=== PATIENT | female | born 1960 | race Caucasian/White ===

== ENCOUNTER 2017-08-21 13:40 | Emergency (ER) | payer BC ==
[2017-08-21 13:49] VITALS: BP 148/91
[2017-08-21] MEDS ORDERED: Lidocaine/Epineph/Tetraca SOL* (LET solution) 4 ML BTL TOPICAL ONE (14:44)
[2017-08-21] MEDS ORDERED: Ibuprofen TAB* 800 MG PO ONE (15:52)
--- NOTE | 2017-08-21 18:22 | ED ---
Skin Complaint - History of Current Complaint Chief Complaint: EDFacialInjury Time Seen by Provider: 08/21/17 14:44 Stated Complaint: FACIAL LAC Pain Intensity: 6 - Allergy/Home Medications Allergies/Adverse Reactions: Allergies Allergy/AdvReac Type Severity Reaction Status Date / Time No Known Allergies Allergy Verified 08/21/17 13:49 PMH/Surg Hx/FS Hx/Imm Hx - Cancer History Hx Chemotherapy: No Hx Radiation Therapy: No Infectious Disease History: No Infectious Disease History: Denies: Traveled Outside the [place] in Last 30 Days - Social History Alcohol Use: None Substance Use Type: Reports: None Smoking Status (MU): Never Smoked Tobacco Physical Exam Vital Signs On Initial Exam: Initial Vitals Temp Pulse Resp BP Pulse Ox 97.6 F 65 15 148/91 98 08/21/17 13:45 08/21/17 13:45 08/21/17 13:45 08/21/17 13:45 08/21/17 13:45 - Ashley Coma Scale Coma Scale Total: 15 Procedures - Laceration/Wound Repair 1 Location: face - Lt cheek Description: Linear Anesthesia: Local, Lido Length, Depth and Shape: 3cm x 2mm Betadine Prep?: Yes Laceration/Wound Explored: clean Closure: Single Layer Suture Type: Prolene - 6-0 Number of Sutures: 8 Layer Closure?: No Sterile Dressing Applied?: Yes Diagnostics - Vital Signs Vital Signs Temp Pulse Resp BP Pulse Ox 08/21/17 13:45 97.6 F 65 15 148/91 98 - Laboratory Lab Statement: Any lab studies that have been ordered have been reviewed, and results considered in the medical decision making process. Course/Dx - Diagnoses Provider Diagnoses: Facial laceration Discharge - Discharge Plan Condition: Stable Disposition: HOME Patient Education Materials: Care For Your Stitches (ED), Facial Laceration (ED ) Referrals: Mary Welch NP [Primary Care Provider] - Additional Instructions: Gently wash wound daily with soap and water - rinse well and pat dry the reapply triple antibiotic ointment Follow-up with PCP in 5 days for wound check and suture removal *If you develop redness, swelling, purulent drainage, fever, chills, seek medical attention sooner
== END 2017-08-21 18:30 | disposition home or self-care (01) ==
LOC: ED 13:40
DX: S01.412A Laceration without foreign body of left cheek and temporomandibular area, initial encounter (principal); X58.XXXA Exposure to other specified factors, initial encounter; Y92.9 Unspecified place or not applicable
CPT/HCPCS: 12011; 99281; A9270-GY

== ENCOUNTER 2019-09-05 11:54 | Observation (INO) | payer BC ==
--- NOTE | 2019-09-05 12:12 | ED ---
Palpitations / Dysrhythmia - HPI Summary HPI Summary: This patient is a 58 year old F with a history of rheumatoid arthritis presenting to ED with a chief complaint of cough since 08/31/19 and palpitations since today. Patient was fatigued on 09/01/19 and has been taking Nyquil every day. Patient went to her PCP this morning and was noted to have sinus tachycardia on EKG. Her PCP sent her here for PNA work-up. Patient reports feeling palpitations like her heart is racing. She reports coughing green phelgm and congestion with mild nausea. Patient denies fevers, chills, earache, urinary symptoms. Patient got her flu shot this year. She received a shot of Enbrel on 09/03/19. The patient rates the pain 0/10 in severity. Symptoms aggravated by nothing. Symptoms alleviated by nothing. HR in ED room noted to be 160. - History of Current Complaint Chief Complaint: EDDysrhythmPalp Time Seen by Provider: 09/05/19 12:05 Hx Obtained From: Patient Onset/Duration: Gradual Onset, Lasting Days - Since 08/31/19, Still Present, Worse Since Timing: Constant Severity Initially: Mild Severity Currently: Mild Character: Fast Aggravating: Nothing Alleviating: Nothing Associated Signs & Symptoms: Negative - Fevers, chills, Nausea - Allergy/Home Medications Allergies/Adverse Reactions: Allergies Allergy/AdvReac Type Severity Reaction Status Date / Time No Known Allergies Allergy Verified 09/05/19 11:56 Home Medications: Home Medications Calcium Carbonate [Calcium] 500 mg PO DAILY 09/05/19 [History Confirmed 09/05/19 ] Etanercept SYR (NF) [Enbrel (NF)] 50 mg SUBCUT Q7D 09/05/19 [History Confirmed 09/05/19] Folic Acid TAB* [Folvite TAB*] 1 mg PO DAILY 09/05/19 [History Confirmed ] Meloxicam(NF) [Mobic(NF)] 15 mg PO DAILY 09/05/19 [History Confirmed 09/05/19] Methotrexate TAB* 2.5 mg PO WEEKLY 09/05/19 [History Confirmed 09/05/19] Multivitamins/Minerals TAB* [Theragran/minerals TAB*] 1 tab PO DAILY 09/05/19 [ History Confirmed 09/05/19] PMH/Surg Hx/FS Hx/Imm Hx Endocrine/Hematology History: Denies: Hx Anticoagulant Therapy, Hx Blood Disorders Cardiovascular History: Denies: Hx Myocardial Infarction Respiratory History: Denies: Hx Pulmonary Embolism Musculoskeletal History: Reports: Hx Arthritis, Hx Rheumatoid Arthritis Sensory History: Denies: Hx Legally Blind, Hx Deafness Opthamlomology History: Denies: Hx Legally Blind EENT History: Denies: Hx Deafness - Cancer History Hx Chemotherapy: No Hx Radiation Therapy: No Infectious Disease History: No Infectious Disease History: Denies: Traveled Outside the [place] in Last 30 Days - Family History Known Family History: Positive: None - Social History Alcohol Use: Occasionally Hx Substance Use: No Substance Use Type: Reports: None Hx Tobacco Use: No Smoking Status (MU): Never Smoked Tobacco Review of Systems Negative: Fever, Chills ENT: Other - Congestion Negative: Ear Ache Positive: Palpitations Positive: Cough Positive: Nausea Genitourinary: Negative - Urinary symptoms All Other Systems Reviewed And Are Negative: Yes Physical Exam - Summary Physical Exam Summary: Constitutional: Well-developed, Well-nourished, Alert. (-) Distressed Skin: Mild turgor HENT: Dry mucous membranes Eyes: Conjunctiva normal Neck: Musculoskeletal ROM normal neck. (-) JVD, (-) Stridor, (-) Tracheal deviation Cardio: Tachycardic; Intact distal pulses; The pedal pulses are 2+ and symmetric. Radial pulses are 2+ and symmetric. Pulmonary/Chest wall: Lower lungs have very faint rhonchi bilaterally. Abd: Soft, (-) tenderness, (-) Distension, (-) Guarding, (-) Rebound Musculoskeletal: (-) Edema Neuro: Alert, Oriented x3 Psych: Mood and affect Normal Triage Information Reviewed: Yes Vital Signs On Initial Exam: Initial Vitals Temp Pulse Resp BP Pulse Ox 97.8 F 160 20 86/62 97 09/05/19 11:56 09/05/19 11:56 09/05/19 11:56 09/05/19 11:56 09/05/19 11:56 Vital Signs Reviewed: Yes Procedures - Sedation Patient Received Moderate/Deep Sedation with Procedure: No Diagnostics - Vital Signs Vital Signs Temp Pulse Resp BP Pulse Ox 09/05/19 11:56 97.8 F 160 20 86/62 97 - Laboratory Result Diagrams: 09/05/19 12:36 09/05/19 12:36 Lab Statement: Any lab studies that have been ordered have been reviewed, and results considered in the medical decision making process. - Radiology CXR Radiology Interpretation Completed By: Radiologist Summary of Radiographic Findings: CXR PATCHY RIGHT MIDLUNG CONSOLIDATION. RECOMMEND FOLLOW-UP UNTIL RESOLUTION TO EXCLUDE UNDERLYING PULMONARY PARENCHYMAL PATHOLOGY. Dr. Rivera has reviewed this radiology report. - CT Chest/thorax CTA CT Interpretation Completed By: Radiologist Summary of CT Findings: 1. NO PULMONARY ARTERIAL FILLING DEFECT TO SUGGEST PULMONARY EMBOLISM. 2. ECTASIA OF THE ASCENDING THORACIC AORTA AT 3.9 CM. 3. MULTIFOCAL AIRSPACE DISEASE AND CENTRILOBULAR NODULARITY SUGGESTIVE OF DIFFUSE INFECTIOUS/INFLAMMATORY PROCESS. Dr. Rivera has reviewed this radiology report. - EKG 1225 Cardiac Rate: Tachycardia - 150 BPM Summary of EKG Findings: An EKG at 1225 revealed junctional tachycardia at 150 BPM. Cannot see P-waves, s1q3t3 suggesting right heart strain, lateral ST- depressions without ST elevations, aVF T-wave non-specific abnormalities, no STEMI, no prior. Dr. Rivera has reviewed and interpreted this EKG. 1318 Cardiac Rate: NL - 97 BPM EKG Rhythm: Sinus Rhythm EKG Comparison: Other - Normalized Summary of EKG Findings: An EKG at 1318 revealed NSR at 97BPM replaced previous junctional tachycardia, lead III very low voltage cannot clearly interpret, lateral ST depressions resolved, aVF normalized compared to prior. Dr. Rivera has reviewed and interpreted this EKG. Re-Evaluation - Re-Evaluation First Eval Re-Evaluation Time: 13:14 Change: Improved Comment: Patient HR decreased to 96 with fluids. Will get repeat EKG. Patient does not usually take baby aspirin. Second Eval Re-Evaluation Time: 15:00 Comment: Discussed results with patient. Patient [place] be [place] [facility] Patient understands and agrees with this plan. Course/Dx - Course Course Of Treatment: This patient is a 58 year old F with a history of rheumatoid arthritis presenting to ED with a chief complaint of cough since and palpitations since today. In the ED course, patient received lactated ringers. An EKG at 1225 revealed junctional tachycardia at 150 BPM. Cannot see P -waves, s1q3t3 suggesting right heart strain, lateral ST-depressions without ST elevations, aVF T-wave non-specific abnormalities, no STEMI, no prior. In the ED course, with fluids, the patient's HR reduced to 96. A repeat EKG at 1318 revealed NSR at 97BPM replaced previous junctional tachycardia, lead III very low voltage cannot clearly interpret, lateral ST depressions resolved, aVF normalized compared to prior. UA revealed 1+ ketones, 2+ blood, 3+ leukocyte esterase, WBC 2+, RBC 2+, squamous epithelial cells present. CXR revealed CXR PATCHY RIGHT MIDLUNG CONSOLIDATION. RECOMMEND FOLLOW-UP UNTIL RESOLUTION TO EXCLUDE UNDERLYING PULMONARY PARENCHYMAL PATHOLOGY. Blood work revealed WBC 11.2 , RBC 3.66, Hgb 11.1, Hct 33, MPV 7.3, neutrophils 8.7, lymphocytes 0.7, monocytes 1.8, sodium 130, chloride 98, glucose 111, troponin 0.14, BNP 457, lipase <10. Influenza A and B both negative. Chest/thorax CTA revealed: 1. NO PULMONARY ARTERIAL FILLING DEFECT TO SUGGEST PULMONARY EMBOLISM. 2. ECTASIA OF THE ASCENDING THORACIC AORTA AT 3.9 CM. 3. MULTIFOCAL AIRSPACE DISEASE AND CENTRILOBULAR NODULARITY SUGGESTIVE OF DIFFUSE INFECTIOUS/INFLAMMATORY PROCESS. Thus, I gave patient Aspirin 162mg, Zithromax, and Rocephin. I will treat the patient as bacterial bronchitis, but given that the patient had positive troponin and junctional tachycardia, I believe the patient needs to be hospitalized on tele-monitor. Discussed patient case with Dr. Scott, hospitalist, who accepted the patient for admission [place] [facility] Patient will be admitted to [facility] with dx of bacterial bronchitis, tachyarrhythmia, dynamic EKG changes, and elevated troponin with likely demand ischemia. Patient understands and agrees with this plan. - Diagnoses Provider Diagnoses: Acute bacterial bronchitis, Tachyarrhythmia, EKG abnormalities, Elevated troponin, Demand ischemia - Physician Notifications Discussed Care Of Patient With: Jennifer Scott Time Discussed With Above Provider: 15:03 Instructed by Provider To: Admit As Inpatient - Discussed patient case with Dr. Scott, hospitalist, who accepted the patient for admission to [facility] Discharge ED - Sign-Out/Discharge Documenting (check all that apply): Patient Departure - Admit - Discharge Plan Condition: Fair Disposition: ADMITTED TO [facility] - Billing Disposition and Condition Condition: FAIR Disposition: Admitted to [facility] - Attestation Statements Document Initiated by Pita: Yes Documenting Scribe: Unruly Arvizu Provider For Whom Pita is Documenting (Include Credential): Anthony Rivera MD Scribe Attestation: I, Unruly Arvizu, scribed for Anthony Rivera MD on 09/05/19 at 1906. Scribe Documentation Reviewed: Yes Provider Attestation: The documentation as recorded by the Unruly chin accurately reflects the service I personally performed and the decisions made by me, Anthony Rivera MD Status of Scribe Document: Viewed
[2019-09-05] MEDS ORDERED: Lactated Ringers 1000 ML Bag* 1,000 ML IV ONE ×2 (12:20→12:21)
[2019-09-05 12:48] LABS: Hematocrit 33 % (35-47); Hemoglobin 11.1 g/dL (12.0-16.0); Mean Corpuscular HGB Conc 34 g/dL (31-36); Mean Corpuscular Hemoglobin 30 pg (27-31); Mean Corpuscular Volume 90 fL (80-97); Mean Platelet Volume 7.3 fL (7.4-10.4); Platelet Count 196 10^3/uL (150-450); Red Blood Count 3.66 10^6 /uL (3.70-4.87); Red Cell Distribution Width 13 % (10-15); White Blood Count 11.2 10^3/uL (3.5-10.8)
[2019-09-05 13:04] LABS: Urine Appearance Cloudy; Urine Bilirubin Negative (Negative); Urine Blood 2+ (Negative); Urine Color Yellow; Urine Glucose Negative (Negative); Urine Ketones 1+ (Negative); Urine Nitrite Negative (Negative); Urine Protein Negative (Negative); Urine Specific Gravity 1.011 (1.010-1.030); Urine Urobilinogen Negative (Negative)
[2019-09-05 13:06] LABS: ALT 14 U/L (7-52); AST 14 U/L (13-39); Albumin 3.6 g/dL (3.2-5.2); Alkaline Phosphatase 87 U/L (34-104); Anion Gap 10 mmol/L (2-11); BUN/Creatinine Ratio 14.6 (8-20); Blood Urea Nitrogen 13 mg/dL (6-24); CO2 Carbon Dioxide 22 mmol/L (22-32); Chloride 98 mmol/L (101-111); EGFR African American 78.8 (>60); EGFR Non-African American 65.1 (>60); Globulin 3.5 g/dL (2-4); Glucose 111 mg/dL (70-100); Indirect Bilirubin 0.3 mg/dL (0.3-1.0); Magnesium 1.9 mg/dL (1.9-2.7); Sodium 130 mmol/L (135-145); Total Protein 7.1 g/dL (6.4-8.9)
[2019-09-05 13:12] LABS: Troponin I 0.14 ng/mL (<0.03)
[2019-09-05] MEDS ORDERED: Iohexol 350* (CONTRAST) 500 ML MDV IV ONE (13:14)
[2019-09-05 13:16] LABS: Urine Bacteria Absent (Absent); Urine Red Blood Cell 2+(6-10/hpf) (Absent); Urine Squamous Epithelial Cell Present (Absent); Urine White Blood Cell 2+(11-20/hpf) (Absent)
[2019-09-05 13:40] LABS: TSH (Thyroid Stimulating Horm) 2.34 mcIU/mL (0.34-5.60)
[2019-09-05 13:42] LABS: Free T4 1.05 ng/dL (0.61-1.12)
[2019-09-05 13:49] LABS: ABS Lymphocytes 0.7 10^3/ul (1.0-4.8); ABS Monocytes 1.8 10^3/ul (0-0.8); ABS Neutrophils 8.7 10^3/ul (1.5-7.7); Eosinophil % 0.1 %; Lymphocyte % 5.9 %
[2019-09-05 13:51] LABS: Influenza A Molecular NEGATIVE (Negative); Influenza B Molecular NEGATIVE (Negative)
[2019-09-05] MEDS ORDERED: cefTRIAXone(*) 1 GM in NS 0.9% 50 ML* 50 ML IVPB ONE (14:43)
[2019-09-05] MEDS ORDERED: Azithromycin 500 mg/250 ml NS 500 MG/250 ML BAG IVPB ONE (14:44)
[2019-09-05] MEDS ORDERED: Aspirin 81 mg CHEW TAB* 81 MG TAB.CHEW PO ONE (14:44)
[2019-09-05] MEDS ORDERED: Ondansetron INJ* 2 MG/ML VIAL IV PRN (16:36)
[2019-09-05] MEDS ORDERED: Al Hydrox/Mg Hydrox/Simet LIQ* 30 ML UDC PO PRN (16:36)
[2019-09-05] MEDS ORDERED: Senna TAB 8.6 mg* TAB PO PRN (16:36)
[2019-09-05 17:31] LABS: Troponin I 0.18 ng/mL (<0.03)
[2019-09-05] MEDS: NS 0.9% 1000 ML** 1,000 ML IV SCH (20:01)
[2019-09-05] MEDS: Acetaminophen TAB* 325 MG PO PRN (20:05)
--- NOTE | 2019-09-05 20:06 | HP ---
CC: Dr. Pulliam * ADMISSION HISTORY AND PHYSICAL: DATE OF ADMISSION: 09/05/19 PROVIDER: ALONSO Nash. PRIMARY CARE PROVIDER: Dr. Pulliam. ATTENDING PHYSICIAN WHILE IN THE HOSPITAL: Dr. Jennifer Scott * (dictated by ALONSO Nash). CHIEF COMPLAINT: Malaise, productive cough, and tachycardia. HISTORY OF PRESENT ILLNESS: Brynn Gomes is a 58-year-old white female with a past medical history significant for rheumatoid arthritis and osteoarthritis who presented to the emergency department upon the direction of her primary care provider due to tachycardia. The patient has been experiencing feeling of general malaise, productive cough, and nasal congestion for 4 days. Yesterday evening, she started to feel her heart racing, which prompted her to go to her primary care provider today. Her primary care provider noted tachycardia and directed her to go to the emergency department. She additionally notes that she has had poor appetite during this period of time, but endorses that she has been drinking a significant amount of water at least 8 cups of water per day. She denies difficulty breathing, chest pain, dizziness, lightheadedness, symptomatic fever or chills, nausea, vomiting, or diarrhea. She did note that she did have some abdominal discomfort 5 days ago; however, this resolved. EMERGENCY DEPARTMENT COURSE: When the patient arrived to the emergency department, her vitals were 97.8 degrees Fahrenheit, pulse of 160 beats per minute, respiratory rate of 20, oxygen saturation 97% on room air, and blood pressure 86/62. She was given 2 L of a fluid bolus and her heart rate then improved to 94 with blood pressure of 109/73 and no longer feeling symptomatic of tachycardia. The hospitalists were then asked to evaluate the patient for admission. PAST MEDICAL HISTORY: 1. Rheumatoid arthritis. 2. Osteoarthritis. PAST SURGICAL HISTORY: Tubal ligation. HOME MEDICATIONS: 1. Multivitamin 1 tab p.o. daily. 2. Calcium 500 mg p.o. daily. 3. Methotrexate 2.5 mg p.o. weekly. 4. Mobic 15 mg p.o. daily. 5. Folic acid 1 mg p.o. daily. 6. Enbrel 50 mg subcu q.7 days (last dose was on 09/03/19). ALLERGIES: No known drug allergies. FAMILY HISTORY: Father due to esophageal cancer. Mother in her 90s due to lymphoma. The patient denies family history of coronary artery disease or CVA. SOCIAL HISTORY: The patient lives with her . They have 2 children. The patient denies tobacco or use of illicit drug use. She drinks approximately 5 alcoholic beverages per week. 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 The patient's surrogate medical decision maker should she need one is her , Rashaad Gomes. His phone number is [phone]. REVIEW OF SYSTEMS: An 11-point review of systems was completed and all pertinent positives and negatives are as noted above in the HPI. All other systems are negative. PHYSICAL EXAMINATION GENERAL: A well-developed, well-nourished white female who appears younger than stated age, lying upright in hospital bed, appearing comfortable, in no acute distress. HEENT: Eyes: PERRL. Sclerae anicteric. ENT: Mucous membranes appear moist. NECK: Supple. LUNGS: Rhonchi in the bilateral lung bases. No crackles appreciated or wheezing. CARDIO: Regular rate and rhythm without murmurs, rubs, or gallops. ABDOMEN: Normoactive bowel sounds x4 quadrants. The abdomen is soft, nontender , and nondistended. EXTREMITIES: No clubbing, cyanosis, or edema. NEUROLOGIC: The patient is alert and oriented x3. No focal deficits. Able to move all extremities. SKIN: Skin is warm, dry, and intact. DIAGNOSTIC STUDIES/LAB DATA: Chest x-ray: Patchy right midlung consolidation. CTA of the chest: No pulmonary arterial filling defect to suggest pulmonary embolism. Ectasia of the ascending thoracic aorta at 3.9 cm. Multifocal airspace disease and centrilobular nodularities with suggestion of diffuse infectious/inflammatory process. EKG at 1225 demonstrates junctional tachycardia at rate of 100 beats per minute. There are some ST depressions in V4 and V5. EKG at 1315 demonstrates normal sinus rhythm, 95 beats per minute. No ST depressions or elevations. No T-wave inversion. Low voltage isolated in lead III. White blood cell count 11.2, hemoglobin 11.1, hematocrit 33, platelet count 196. Sodium 130, potassium 4.0, chloride 98, carbon dioxide 22, anion gap 10, BUN 13, creatinine 0.89, glucose 111, calcium 9, magnesium 1.9. LFTs are unremarkable. Troponin 0.14, BNP 457. TSH 2.34, free T4 of 1.05. Influenza A negative, influenza B negative. Urinalysis with +3 esterase, present squamous epithelial cells, +2 wbc's, +2 rbc's, +2 blood, +1 ketones. ASSESSMENT AND PLAN: Brynn Gomes is a 58-year-old white female with a past medical history significant for rheumatoid arthritis who presents to the emergency department for tachycardia, malaise, and cough. The patient will be admitted to observation for: 1. Sepsis secondary to pneumonia. The patient meets sepsis criteria due to her tachycardia and tachypnea. She does have leukocytosis. She is afebrile. Her chest x-ray does confirm consolidation and she does have clinical findings of pneumonia. Her tachycardia greatly improved with 2 L fluid bolus of lactated Ringer's, which is appropriate for her weight. Unfortunately, her blood cultures were not drawn prior to this; however, we will draw them now, though they will likely be of low utility given that they were taken after IV antibiotics were administered by the ED provider of ceftriaxone and azithromycin. She is minimally hypotensive and I will continue 100 cc per hour of normal saline. I will continue ceftriaxone and azithromycin. I have ordered Legionella and Streptococcus pneumoniae urine antigen as well as sputum culture. 2. Tachycardia. The patient's tachycardia is likely secondary to sepsis, as previously mentioned, and has resolved with fluids, though she is still minimally tachycardic. We will continue to closely monitor this and we will order the patient telemetry. Pulmonary embolism has been effectively ruled out with CTA of the chest. 3. Elevated troponin. The patient does have a mildly elevated troponin, which I suspect is due to the troponin being drawn during a tachycardic event and is likely ischemic demand. Additionally, ischemic demand would also be related to her acute illness, but I will repeat a troponin as well as an additional EKG and continue to monitor this. She has been given aspirin in the emergency department, though I have low suspicion for acute coronary syndrome. The patient will be on telemetry, as previously mentioned. 4. Rheumatoid arthritis. The patient received Enbrel recently. I am going to hold her methotrexate while she is in the hospital. 5. FEN. Continue 100 cc of normal saline. The patient is minimally hyponatremic to 130, though not symptomatic of this and hopefully, this will improve with normal saline. We will continue to monitor. The patient may have a regular unrestricted diet. 6. Aorta ectasia. This is an incidental finding of the patient's CT angiogram and the patient is not symptomatic of an aortic aneurysm. This should be followed up outpatient with her primary care provider. 7. Code status. The patient is full code. 8. DVT prophylaxis. The patient has a DVT risk score of 2. I have started her on Lovenox. TIME SPENT: Approximately 50 minutes were spent on this admission, approximately half this time was spent at the bedside evaluating the patient and discussing the plan of care. This case has been reviewed by my attending, Dr. Jennifer Scott, and she agrees with this plan of care. ALONSO NASH [id number]/[facility] #: [id number] JOCELYNN
[2019-09-05 20:29] LABS: Troponin I 0.15 ng/mL (<0.03)
[2019-09-05] MEDS ORDERED: Melatonin 3 MG TAB PO PRN (20:30)
[2019-09-05] MEDS ORDERED: Benzonatate CAP* 100 MG PO PRN (20:30)
[2019-09-05] MEDS ORDERED: Enoxaparin(*) 40 MG/0.4 ML SYR SUBCUT SCH (21:00)
[2019-09-06 05:46] LABS: ABS Eosinophils 0.1 10^3/ul (0-0.6); ABS Lymphocytes 1.1 10^3/ul (1.0-4.8); ABS Monocytes 1.5 10^3/ul (0-0.8); ABS Neutrophils 5.3 10^3/ul (1.5-7.7); Eosinophil % 1.5 %; Hematocrit 28 % (35-47); Hemoglobin 9.6 g/dL (12.0-16.0); Lymphocyte % 14.2 %; Mean Corpuscular HGB Conc 35 g/dL (31-36); Mean Corpuscular Hemoglobin 31 pg (27-31); Mean Corpuscular Volume 89 fL (80-97); Mean Platelet Volume 7.5 fL (7.4-10.4); Platelet Count 189 10^3/uL (150-450); Red Blood Count 3.14 10^6 /uL (3.70-4.87); Red Cell Distribution Width 13 % (10-15); White Blood Count 8.1 10^3/uL (3.5-10.8)
[2019-09-06 06:03] LABS: BUN/Creatinine Ratio 13.2 (8-20); Calcium 8.2 mg/dL (8.6-10.3); EGFR African American 107.5 (>60); EGFR Non-African American 88.9 (>60); Potassium 3.7 mmol/L (3.5-5.0)
[2019-09-06] MEDS: NS 0.9% 1000 ML** 1,000 ML IV SCH (06:36)
[2019-09-06] MEDS: Acetaminophen TAB* 325 MG PO PRN (06:39)
[2019-09-06] MEDS ORDERED: cefTRIAXone(*) 1 GM in NS 0.9% 50 ML* 50 ML IVPB SCH (08:00)
[2019-09-06 08:05] VITALS: BP 119/67
[2019-09-06] MEDS ORDERED: Azithromycin TAB* 250 MG PO SCH (09:00)
--- NOTE | 2019-09-06 22:51 | DS ---
CC: Dr. Pulliam * DISCHARGE SUMMARY: DATE OF ADMISSION: 09/05/19 DATE OF DISCHARGE: 09/06/19 ATTENDING PHYSICIAN WHILE IN THE HOSPITAL: Layne Rasheed MD * (dictated by ALONSO Nash). PRIMARY CARE PROVIDER: Dr. Pulliam. PRINCIPAL DIAGNOSES: 1. Sepsis secondary to pneumonia, signs of sepsis resolved. 2. Junctional tachycardia, resolved. 3. Elevated troponin related to ischemic demand. SECONDARY DIAGNOSES: 1. Rheumatoid arthritis. 2. Osteoarthritis. STUDIES DONE WHILE IN THE HOSPITAL: Chest CTA, no pulmonary arterial filling defect to suggest pulmonary embolism. Ectasia of the ascending thoracic aorta at 3.9 cm. Multifocal airspace disease and centrilobular nodularity suggested of diffuse infectious/inflammatory process. Chest x-ray: Impression: Patchy right midlung consolidation. PERTINENT LABORATORY DATA: White blood cell count 11.2, downtrended to 8.1. Troponin initially 0.14, then 0.18, and 0.15. Urine culture no growth. Legionella antigen negative. Streptococcus pneumonia antigen negative. HISTORY OF PRESENT ILLNESS/HOSPITAL COURSE: Brynn Gomes is a 58-year-old white female with past medical history significant for rheumatoid arthritis and osteoarthritis, who presented to the emergency department on 09/05/19 due to malaise, productive cough, and tachycardia. Please see admitting history and physical written by myself for further details. In brief, the patient had a sensation of tachycardia and went to her primary care provider, who directed her to the emergency department. She was found to be tachycardic in the 160s, which resolved with 2 L fluid bolus while she was in the emergency department. This was felt to be related to her sepsis secondary to pneumonia. She did have an elevated troponin, which is likely ischemic demand in the setting of her episode of tachycardia as well as acute infection. She had no ischemic changes on her EKG and this has very low likelihood to represent ACS. The patient was treated with IV ceftriaxone and azithromycin empirically. She was feeling much improved on the day of discharge. She did receive Tessalon Perles for her cough , which she felt helped her symptomatically. She was afebrile during the entirety of her hospital stay. Her leukocytosis down trended and her tachycardia and tachypnea resolved. She was initially hypotensive and I continued fluids overnight into the morning and her hypotension resolved. She felt comfortable with discharge. She had no shortness of breath, no chest pain. No symptomatic fevers or chills. She was feeling improved. She did develop a productive cough, though as previously mentioned with symptomatic improvement with Tessalon Perles. The patient did have an episode of loose bowel movement after receiving antibiotics. PHYSICAL EXAMINATION ON THE DAY OF DISCHARGE: General: Middle-aged white female, well developed, well nourished; sitting upright on hospital bed, appearing comfortable, in no acute distress. Eyes: PERRLA. Sclerae anicteric. ENT: Mucous membranes are moist. Lungs: Clear to auscultation throughout. Cardio: Regular rate and rhythm without murmurs, rubs, or gallops. Abdomen: Soft, nontender, and nondistended. Extremities: No clubbing, cyanosis, or edema. Neuro: Alert and oriented x3. DISCHARGE PLAN: Diet: Regular, unrestricted diet. Activity: The patient may return to normal activity as tolerated. The patient is advised to hold her methotrexate and discuss when to restart this with her primary care provider. She is advised to follow up with her primary care provider within a week to 10 days. The incidental finding of her aortic ectasia should be followed up outpatient as well. She is advised to continue her antibiotics to completion. She requested a probiotic and was advised to separate this several hours from her antibiotics. She is advised to return to the emergency department should she experience any shortness of breath , chest pain, fever, chills, dizziness, lightheadedness. The patient was advised to maintain oral fluid intake and to rest for the next 3 days. DISCHARGE MEDICATIONS: New Medications: 1. Azithromycin 250 mg p.o. daily x3 days. 2. Cefdinir 30 mg p.o. b.i.d. x11 doses. 3. Lactobacillus acidophilous 1 cap p.o. daily x1 week. 4. Tessalon 100 mg p.o. b.i.d. p.r.n. cough. Continued Home Medications: 1. Enbrel 50 mg subcu q.7 days. 2. Folic acid 1 mg p.o. daily. 3. Mobic 15 mg p.o. daily. 4. Calcium carbonate 500 mg p.o. daily. 5. Multivitamins 1 tab p.o. daily. Home medication to be held until followup: 1. Methotrexate 2.5 mg p.o. weekly. CONDITION ON DISCHARGE: Improved. DISPOSITION: Home. TIME SPENT: Approximately 40 minutes were spent on this discharge, approximately half this time was spent at the bedside evaluating the patient and discussing the plan of care. ALONSO NASH [id number]/[facility] #: [id number] JOCELYNN
== END 2019-09-06 11:35 | disposition home or self-care (01) ==
LOC: ED 11:54 → MED 16:36 → MEDTELE 17:22
PROVIDERS: ADMIT Hospitalist; ATTEND Internal Medicine
DX: A41.9 Sepsis, unspecified organism (principal); J18.9 Pneumonia, unspecified organism; R00.0 Tachycardia, unspecified; I24.8 Other forms of acute ischemic heart disease; M06.9 Rheumatoid arthritis, unspecified; M19.90 Unspecified osteoarthritis, unspecified site; I77.810 Thoracic aortic ectasia; Z79.899 Other long term (current) drug therapy; R53.81 Other malaise; R94.31 Abnormal electrocardiogram [ECG] [EKG]
CPT/HCPCS: 36415; 71046; 71275; 80048; 80076; 81003; 81015; 83605; 83690; 83735; 83880; 84439; 84443; 84484; 85025; 87040; 87086; 87899; 93005; 96361; 96365; 96366; 96372; 96375; 99284; A9270-GY; G0378; J0456; J0696; J1650; Q9967